=== PATIENT | female | born 1965 | race Two or more races ===

== ENCOUNTER 2025-01-31 07:13 | Emergency (ER) | payer OTHER ==
[~2025-01-31] VITALS: Ht 152.4 cm; Wt 45.6 kg
--- NOTE | 2025-01-31 07:53 | ED.PDOC ---
[place]. trauma (HPI) HPI Comments 59F presents to the ER w/ no prior MHx associated to the c/c of a slip/fall. Pt reports that she was in the bathroom at 0600 this morning when she fell back hitting the posterior aspect of the skull. S/P from the fall the pt immediately saw blood and headed to the ER due from having a 1cm lac. Pain rated mild/moderate No associated symptoms Denies persistent nausea Denies vomiting Denies thunderclap headache Denies photophobia, phonophobia Denies family history of brain issues persistent headaches Denies taking any blood thinner medication Denies vision/hearing changes Denies focal loss of strength/sensation or changes in speech Chief Complaint: Laceration Time Seen by MD: 07:35 Primary Care Provider: UNKNOWN Reviewed notes: Nurses Notes, Medications, Allergies Allergies: Coded Allergies: NO KNOWN ALLERGIES (Unverified , 01/31/25) Information Source: Patient Mode of Arrival: Ambulatory Severity: Moderate Timing: Minutes Duration: Since onset, Minutes Prehospital treatment: None Location: Head (posterior aspect) Location of laceration: Head Mechanism: Fall Associated signs and symtoms: None Past Medical History PAST MEDICAL HISTORY: Denies Surgical History: Denies all surgeries CLASSROOM ASSISTANT History: No Pertinent CLASSROOM ASSISTANT History Family History Family History: Reviewed,noncontributory to illness, Unknown Social History Smoker: Non-Smoker Alcohol: Denies ETOH Use Drugs: Denies Drug Use Lives In: Home Constitutional: denies: chills, diaphoresis, fatigue, fever, malaise, sweats, weakness, others EENTM: denies: blurred vision, double vision, ear bleeding, ear discharge, ear drainage, ear pain, ear ringing, eye pain, eye redness, hearing loss, mouth pain, mouth swelling, nasal discharge, nose bleeding, nose congestion, nose pain, photophobia, tearing, throat pain, throat swelling, voice changes, others Respiratory: denies: cough, hemoptysis, orthopnea, SOB at rest, shortness of breath, SOB with excertion, stridor, wheezing, others Cardiovascular: denies: chest pain, dizzy spells, diaphoresis, Dyspnea on exertion, edema, irregular heart beat, left arm pain, lightheadedness, palpitations, PND, syncope, others Gastrointestinal: denies: abdomen distended, abdominal pain, blood streaked bowels, constipated, diarrhea, dysphagia, difficulty swallowing, hematemesis, melena, nausea, poor appetite, poor fluid intake, rectal bleeding, rectal pain, vomiting, others Genitourinary: denies: abnormal vagina bleeding, burning, dyspareunia, dysuria, flank pain, frequency, hematuria, incontinence, pain, , vagina discharge, urgency, others Neurological: denies: dizziness, fainting, headache, left sided numbness, left sided weakness, numbness, paresthesia, pre-existing deficit, right sided numbness, right sided weakness, seizure, speech problems, tingling, tremors, weakness, others Musculoskeletal: reports: others (posterior aspect of theskull); denies: back pain, gout, joint pain, joint swelling, muscle pain, muscle stiffness, neck pain Integumetry: denies: bruises, change in color, change in hair/nails, dryness, laceration, lesions, lumps, rash, wounds, others Allergic/Immunocompromised: denies: Difficulty Healing, Frequent Infections, Hives, Itching, others Hematologic/Lymphatic: denies: anemia, blood clots, easy bleeding, easy bruising, swollen glands, others Endocrine: denies: excessive hunger, excessive sweating, excessive thirst, excessive urination, flushing, intolerance to cold, intolerance to heat, unexplained weight gain, unexplained weight loss, others Psychiatric: denies: anxiety, bipolar disorder, depression, hopeless, panic disorder, schizophrenia, sleepless, suicidal, others All Other Systems: Reviewed and Negative Physical Exam General Appearance: No Apparent Distress, Normal HEENT: Head (1cm Lac on the posterior aspect of the skull, no active bleeding/foreign bodies, mild swelling, mild TTP), Normal ENT Inspection, Pharynx Normal, TMs Normal Neck: Full Range of Motion, Non-Tender, Normal, Normal Inspection Respiratory: Chest Non-Tender, Lungs Clear, No Accessory Muscle Use, No Respiratory Distress, Normal Breath Sounds Cardiovascular: No Edema, No JVD, No Murmur, No Gallop, Normal Peripheral Pulses, Regular Rate/Rhythm Breast Exam: Deferred Gastrointestinal: No Organomegaly, Non Tender, No Pulsatile Mass, Normal Bowel Sounds, Soft Genitalia: Deferred Pelvic: Deferred Rectal: Deferred Extremities: No calf tenderness, Normal capillary refill, Normal inspection, Normal range of motion, Non-tender, No pedal edema Musculoskeletal : Extremity Location: Other Apperance: Normal Neurologic: Alert, 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 Was a procedure done?: Yes Sedation Sedation?: No Laceration Repair : Location posterior skull Length 2 Laceration Repair Prep: Saline, Betadine, by Irrigation Laceration Repair Wound Comple: epidermis/dermis repair Laceration Repair: Skin, Ese (2) Informed consent obtained: Yes Risks, benefits, and alternati: Yes Differential Diagnosis Multiple Trauma: Laceration X-Ray, Labs, Meds, VS Vital Signs Date Time Temp Pulse Resp B/P (MAP) Pulse Ox O2 Delivery O2 Flow Rate FiO2 01/31/25 08:00 85 18 99 Room Air* 0 21 01/31/25 08:00 97.6 16 99 114/64 (81) 85 97.6 01/31/25 07:32 97.6 85 16 114/64 (81) 99 97.6 X-Ray, Labs, Meds, VS Comment 59F presents to the ER w/ no prior MHx associated to the c/c of a slip/fall. Patient arrives alert and oriented, ABC's intact, afebrile, vital signs stable, saturating well in room air The laceration was irrigated under high-pressure with a 60 mL syringe A total of 1L sterile water was used. The laceration was prepped in sterile fashion with sterile drapes On examination under direct light, there was no foreign body seen The laceration was repaired w/ ese There were no complications related to repair Education and follow-up instructions provided Wound check in 2 days Return sooner for signs of infection such as fevers, increased pain, redness, green, yellow discharge, or any concerns Keep wound dry for 24 to 48 hours; dry dressing may be changed Protect from sunlight and keep area clean and dry. Use soap and water if it gets dirty High risk of possible scarring and education provided on ways to minimize scarring after wound heals Also provided education on possible complications post procedure including wound dehiscence, infection, etc. Additional MDM Review of External, Non-ED records: External records reviewed. Discussion with independent historian (EMS, family) history obtained from the patient/parents (if applicable) at bedside Chronic conditions affecting care: None Social determinants of health affecting care: None Consideration of admission (observation or admission): I considered escalation of care to admission for this patient, however given the reassuring workup, the patient is safe for outpatient management. Discussion with the Radiology: No Tests considered but not performed: Prescription medication considered but not given: 12 lead EKG interpretation: Time of 1ST Reevaluation: 08:05 Reevaluation 1ST: Unchanged Time of 2ND Reevaluation: 07:55 Reevaluation 2ND: Improved Patient Education/Counseling: Diagnosis, Treatment, Prognosis Family Education/Counseling: No Family Present Departure 1 Departure Time of Disposition: 07:56 Impression: Primary Impression: Fall in shower Additional Impression: Laceration Disposition: 01 HOME / SELF CARE / HOMELESS Condition: Stable Discharged With: Self Critical Care Note Critical Care Time?: No Stability Stability form required: No Heart Score Heart Score: Heart Score Response (Comments) Value History N/A 0 EKG N/A 0 Age N/A 0 Risk Factors N/A 0 Troponin N/A 0 Total 0 I personally scribed for ZORA CERDA NP ([email or web address]) on 01/31/25 at 07:53. Electronically submitted by Ish Arana ([email or web address]). ZORA CERDA NP Jan 31, 2025 07:53
[2025-01-31 08:00] VITALS: BP 114/64; PULSE 85; RESP 18; TEMP 97.6; O2SAT 99
== END 2025-01-31 08:09 | disposition home or self-care (01) ==
LOC: ER 07:18
DX: S01.81XA Laceration without foreign body of other part of head, initial encounter (principal); W18.2XXA Fall in (into) shower or empty bathtub, initial encounter; Y93.89 Activity, other specified; Y92.89 Other specified places as the place of occurrence of the external cause; Y99.8 Other external cause status
CPT/HCPCS: 12001